=== PATIENT | female | born 1950 | race Caucasian/White ===

== ENCOUNTER 2022-04-14 21:03 | Emergency (ER) | payer MEDICARE, OTHER | END 2022-04-15 01:02 | disposition home or self-care (01) | LOC: CSHERS 21:03 | DX: S86.912A Strain of unspecified muscle(s) and tendon(s) at lower leg level, left leg, initial encounter (principal); X58.XXXA Exposure to other specified factors, initial encounter ==

== ENCOUNTER 2022-04-17 15:59 | Inpatient (IN) | payer MEDICARE, OTHER ==
[~2022-04-17 15:59] MED LIST: Iopamidol 300 61% 100 ML VIAL FS ONE
[2022-04-17] MEDS ORDERED: Lidocaine 1% (PF) 30 ML VIAL ONE ×2 (16:06)
[2022-04-17] MEDS ORDERED: Heparin 10,000 UNITS/ 10 ML VIAL ONE (16:06)
[2022-04-17] MEDS ORDERED: Fentanyl 100 MCG/2 ML VIAL ONE (16:07)
[2022-04-17] MEDS ORDERED: Midazolam HCl 2 mg/2 ml Vial ONE (16:07)
[2022-04-17] MEDS ORDERED: TICAGRELOR 90 MG TABLET ONE (16:08)
[2022-04-17] MEDS ORDERED: Aggrastat 12.5 MG/250 ML 0 ML ONE (17:54)
[2022-04-17] MEDS ORDERED: Heparin 25,000 units/D5W 500 ML ONE (18:26)
[2022-04-17] MEDS ORDERED: Activase 8 MG in Sodium Chloride 0.9% 100 ML CATH SCH (18:30)
[2022-04-17] MEDS ORDERED: Morphine 2 MG/ML VIAL ONE (19:29)
[2022-04-17 20:16] VITALS: BMI 24.0
[2022-04-17] MEDS ORDERED: Ondansetron PF 4 MG/2 ML Vial IVP PRN (20:17)
[2022-04-17] MEDS ORDERED: Morphine 2 MG/ML VIAL SLOW IVP PRN (20:17)
[2022-04-17] MEDS ORDERED: Fentanyl 100 MCG/2 ML VIAL SLOW IVP SCH (20:45)
[2022-04-17] MEDS ORDERED: Heparin 10,000 UNITS/ 10 ML VIAL SLOW IVP SCH (21:00)
[2022-04-17] MEDS ORDERED: Carvedilol 12.5 MG TAB PO SCH (21:00)
[2022-04-17] MEDS ORDERED: Heparin 25,000 units/D5W 500 ML IV SCH (21:00)
[2022-04-17] MEDS ORDERED: Morphine 2 MG/ML VIAL SLOW IVP SCH (21:15)
[2022-04-17] MEDS: Sodium Chloride 0.9% 1,000 ML IV SCH (22:02)
[2022-04-17 22:05] LABS: SARS-CoV-2 NAA Rapid Test Not Detected (NotDetected)
[2022-04-17] MEDS: Morphine 4 MG/ML VIAL SLOW IVP SCH (22:42)
[2022-04-18] MEDS: Morphine 2 MG/ML VIAL SLOW IVP PRN ×3 (00:03→22:21)
[2022-04-18] MEDS: SODIUM CHLORIDE 0.9% CATH SCH ×2 (00:09→04:49)
[2022-04-18] MEDS: ACTIVASE CATH SCH ×2 (00:09→04:49)
[2022-04-18] MEDS: Morphine 4 MG/ML VIAL SLOW IVP SCH ×12 (01:04→22:00)
[2022-04-18 04:17] LABS: #Monocytes 0.8 10x3/uL (0.0-1.1); #Neutrophils 6.5 10x3/uL (1.5-8.4); %Basophils 0.2 % (0.0-2.0); %Eosinophils 0.1 % (0.0-6.0); %Lymphocytes 21.1 % (18.0-47.0); %Monocytes 8.7 % (0.0-10.0); %Neutrophils 69.6 % (40.0-75.0); Hemoglobin 10.9 g/dL (12.0-15.5); Mean Corpuscular HGB CONC 34.4 g/dL (32.0-36.0); Mean Corpuscular Hemoglobin 34.4 pg (27.0-33.0); Mean Platelet Volume 9.3 fl (7.4-10.4); Platelet Count 259 10x3/uL (150-450); RBC Distribution Width 12.9 % (11.5-14.5); Red Blood Cell (RBC) Count 3.17 10x6/uL (3.90-5.03); White Blood Cell (WBC) Count 9.3 10x3/uL (3.5-10.5)
[2022-04-18 04:35] LABS: ALT (SGPT) 24 U/L (8-55); AST (SGOT) 26 U/L (5-34); Albumin 3.4 g/dL (3.4-4.8); Alkaline Phosphatase 39 U/L (40-110); Anion Gap 13 mmol/L (10-20); BUN (Urea Nitrogen) 8 mg/dL (9.8-20.1); Bilirubin, Total 0.8 mg/dL (0.2-1.2); Calc. Creatinine Clearance 111 mL/min (70-130); Calcium 7.8 mg/dL (7.8-10.44); Carbon Dioxide 18 mmol/L (23-31); Chloride 107 mmol/L (98-107); Estimated GFR 99; Globulin 2.3 g/dL (2.4-3.5); Glucose 122 mg/dL (83-110); Potassium 3.5 mmol/L (3.5-5.1); Protein, Total 5.7 g/dL (5.8-8.1); Sodium 134 mmol/L (136-145)
[2022-04-18] MEDS: Carvedilol 12.5 MG TAB PO SCH ×2 (07:56→17:13)
[2022-04-18] MEDS: Aspirin Chewable 81 MG TAB PO SCH (07:56)
[2022-04-18] MEDS ORDERED: Lidocaine 1% (PF) 30 ML VIAL ONE (08:19)
[2022-04-18] MEDS ORDERED: Heparin 10,000 UNITS/ 10 ML VIAL ONE (08:19)
[2022-04-18] MEDS: Sodium Chloride 0.9% 1,000 ML IV SCH ×3 (08:30→18:49)
[2022-04-18] MEDS ORDERED: Ondansetron PF 4 MG/2 ML Vial ONE (09:46)
[2022-04-18] MEDS: Apixaban 5 MG TAB PO SCH (16:41)
[2022-04-19] MEDS: Sodium Chloride 0.9% 1,000 ML IV SCH ×2 (01:00→07:55)
[2022-04-19] MEDS: Morphine 4 MG/ML VIAL SLOW IVP SCH ×6 (02:00→11:10)
[2022-04-19 03:54] LABS: #Monocytes 0.8 10x3/uL (0.0-1.1); #Neutrophils 4.4 10x3/uL (1.5-8.4); %Basophils 0.1 % (0.0-2.0); %Eosinophils 0.4 % (0.0-6.0); %Lymphocytes 23.2 % (18.0-47.0); %Monocytes 11.5 % (0.0-10.0); %Neutrophils 64.4 % (40.0-75.0); Hemoglobin 8.7 g/dL (12.0-15.5); Mean Corpuscular HGB CONC 33.9 g/dL (32.0-36.0); Mean Corpuscular Hemoglobin 34.4 pg (27.0-33.0); Mean Corpuscular Volume 101.6 fl (81.6-98.3); Mean Platelet Volume 9.4 fl (7.4-10.4); Platelet Count 198 10x3/uL (150-450); Red Blood Cell (RBC) Count 2.53 10x6/uL (3.90-5.03); White Blood Cell (WBC) Count 6.9 10x3/uL (3.5-10.5)
[2022-04-19 04:22] LABS: ALT (SGPT) 39 U/L (8-55); AST (SGOT) 75 U/L (5-34); Alkaline Phosphatase 33 U/L (40-110); Anion Gap 10 mmol/L (10-20); BUN (Urea Nitrogen) 8 mg/dL (9.8-20.1); Bilirubin, Total 0.8 mg/dL (0.2-1.2); Calc. Creatinine Clearance 113 mL/min (70-130); Calcium 7.3 mg/dL (7.8-10.44); Carbon Dioxide 20 mmol/L (23-31); Chloride 106 mmol/L (98-107); Estimated GFR 99; Globulin 2.1 g/dL (2.4-3.5); Glucose 92 mg/dL (83-110); Protein, Total 5.1 g/dL (5.8-8.1); Sodium 133 mmol/L (136-145)
[2022-04-19] MEDS: Morphine 2 MG/ML VIAL SLOW IVP PRN (06:19)
[2022-04-19] MEDS: Apixaban 5 MG TAB PO SCH ×2 (08:00→19:34)
[2022-04-19] MEDS: Aspirin Chewable 81 MG TAB PO SCH (08:00)
[2022-04-19] MEDS: Carvedilol 12.5 MG TAB PO SCH ×2 (08:00→16:08)
[2022-04-19] MEDS ORDERED: Potassium Chloride 10 MEQ in Premix Bag 1 BAG IVPB SCH (10:15)
[2022-04-19] MEDS ORDERED: Potassium Chloride 20 MEQ TAB PO SCH (10:15)
[2022-04-19] MEDS: Acetaminophen 325 MG TAB PO PRN ×3 (10:21→19:17)
[2022-04-19] MEDS ORDERED: Diazepam 2 MG TAB PO PRN (20:08)
[2022-04-19] MEDS ORDERED: Diazepam 5 MG TAB PO PRN (22:14)
[2022-04-20] MEDS: Acetaminophen 325 MG TAB PO PRN ×2 (06:37→11:27)
[2022-04-20] MEDS: Carvedilol 12.5 MG TAB PO SCH (08:22)
[2022-04-20] MEDS: Aspirin Chewable 81 MG TAB PO SCH (08:22)
[2022-04-20] MEDS: Apixaban 5 MG TAB PO SCH (08:22)
[2022-04-20 09:07] LABS: #Eosinphils 0.1 10x3/uL (0.0-0.5); #Monocytes 0.8 10x3/uL (0.0-1.1); #Neutrophils 4.2 10x3/uL (1.5-8.4); %Basophils 0.3 % (0.0-2.0); %Eosinophils 1.1 % (0.0-6.0); %Lymphocytes 22.7 % (18.0-47.0); %Monocytes 11.8 % (0.0-10.0); %Neutrophils 63.8 % (40.0-75.0); Hemoglobin 8.9 g/dL (12.0-15.5); Mean Platelet Volume 9.6 fl (7.4-10.4); Platelet Count 204 10x3/uL (150-450); RBC Distribution Width 12.8 % (11.5-14.5); Red Blood Cell (RBC) Count 2.54 10x6/uL (3.90-5.03); White Blood Cell (WBC) Count 6.6 10x3/uL (3.5-10.5)
[2022-04-20 09:24] LABS: ALT (SGPT) 43 U/L (8-55); AST (SGOT) 92 U/L (5-34); Albumin 3.2 g/dL (3.4-4.8); Alkaline Phosphatase 37 U/L (40-110); Anion Gap 11 mmol/L (10-20); BUN (Urea Nitrogen) 6 mg/dL (9.8-20.1); Bilirubin, Total 0.7 mg/dL (0.2-1.2); Calc. Creatinine Clearance 108 mL/min (70-130); Calcium 8.1 mg/dL (7.8-10.44); Carbon Dioxide 23 mmol/L (23-31); Chloride 108 mmol/L (98-107); Estimated GFR 98; Globulin 2.4 g/dL (2.4-3.5); Glucose 84 mg/dL (83-110); Potassium 3.4 mmol/L (3.5-5.1); Protein, Total 5.6 g/dL (5.8-8.1); Sodium 139 mmol/L (136-145)
[2022-04-20 11:45] VITALS: BP 136/75; TEMP 98.4
== END 2022-04-20 12:38 | disposition home or self-care (01) | DRG 271 ==
LOC: CSHERS 15:59 → CSHTELE 18:04 → OBSVTOIN 18:25 → CSHICU 19:55
PROVIDERS: ADMIT Specialist; ATTEND Specialist
PROC: B4101ZZ Fluoroscopy of Abdominal Aorta using Low Osmolar Contrast (ICD-10-PCS; principal; 2022-04-17)
PROC: X2CT3T7 Extirpation of Matter from Left Lower Extremity Artery using Computer-aided Mechanical Aspiration, Percutaneous Approach, New Technology Group 7 (ICD-10-PCS; 2022-04-17)
PROC: 047L3ZZ Dilation of Left Femoral Artery, Percutaneous Approach (ICD-10-PCS; 2022-04-17)
PROC: B41G1ZZ Fluoroscopy of Left Lower Extremity Arteries using Low Osmolar Contrast (ICD-10-PCS; 2022-04-17)
PROC: 3E05317 Introduction of Other Thrombolytic into Peripheral Artery, Percutaneous Approach (ICD-10-PCS; 2022-04-17)
PROC: B41G1ZZ Fluoroscopy of Left Lower Extremity Arteries using Low Osmolar Contrast (ICD-10-PCS; 2022-04-18)
DX: I74.5 Embolism and thrombosis of iliac artery (principal); I42.9 Cardiomyopathy, unspecified; I74.3 Embolism and thrombosis of arteries of the lower extremities; I48.20 Chronic atrial fibrillation, unspecified; I70.222 Atherosclerosis of native arteries of extremities with rest pain, left leg; I10 Essential (primary) hypertension; F17.210 Nicotine dependence, cigarettes, uncomplicated; I34.0 Nonrheumatic mitral (valve) insufficiency; E87.6 Hypokalemia; Z88.5 Allergy status to narcotic agent; Z82.49 Family history of ischemic heart disease and other diseases of the circulatory system; Z79.01 Long term (current) use of anticoagulants; Z20.822 Contact with and (suspected) exposure to COVID-19
CPT/HCPCS: 36140; 36245; 36246; 36415; 37184; 37185; 37214; 37224; 75710; 75736; 80053; 85025; 85347; 85730; 93005; 93010; 97139; 99152; 99153; C1725; C1751; C1757; C1769; C1894; J1644; J2001; J2250; J2270; J2272; J2405; J2997; J3010; J3246; J3480; J3490; J7050; Q9967